=== PATIENT | female | born 1960 | race Caucasian/White ===

== ENCOUNTER 2018-11-15 17:02 | Outpatient (CLI) | payer BC | END 2018-11-15 17:03 | disposition home or self-care (01) | LOC: LABBT 17:02 | PROVIDERS: ATTEND Orthopaedic Surgery | DX: Z01.818 Encounter for other preprocedural examination (principal); S83.281A Other tear of lateral meniscus, current injury, right knee, initial encounter | CPT/HCPCS: 93005; 93010 ==